=== PATIENT | male | born 1975 | race Caucasian/White ===

== ENCOUNTER 2018-09-10 12:46 | Emergency (ER) | payer MEDICARE ==
[2018-09-10 13:14] LABS: BASOPHIL % 0.1 % (0.0-0.4); Basophil (Absolute #) 0.03 (0-0.4); Eosinophil (Absolute #) 0.01 (0-0.5); Granulocyte Absolute (ANC) 18.23 (1.4-6.9); Granulocytes % 85.6 % (36.0-66.0); Hematocrit 40.8 % (42-50); Hemoglobin 14.2 gm/dl (12.5-18.0); Lymphocytes % 8.4 % (24.0-44.0); Mean Cell Volume 98.3 fl (78-100); Mean Corpuscular Hemoglobin 34.2 pg (26-32); Mean Corpuscular Hgb Concent. 34.8 g/dl (32-36); Mean Platelet Volume 11.2 fl (6-9.5); Monocyte (Absolute #) 1.25 (0.0-1.3); Monocytes % 5.9 % (0.0-12.0); Platelet Count 187 K/mm3 (150-450); Red Blood Count 4.15 M/mm3 (4.1-5.6); Red Cell Distribution Width 11.9 % (11.5-14.0); White Blood Count 21.3 K/mm3 (4.0-10.5)
[2018-09-10 13:33] LABS: ALBUMIN 4.8 g/dL (3.5-5.0); ALKALINE PHOSPHATASE 80 U/L (38-126); ANION GAP 14.9 MEQ/L (5-15); BLOOD UREA NITROGEN 12 mg/dL (9-20); CHLORIDE 101 mmol/L (98-107); Calcium 9.8 mg/dL (8.4-10.2); Carbon Dioxide 27 mmol/L (22-30); Creatinine 1 0.84 mg/dL (0.66-1.25); Glucose 118 mg/dL (74-106); NT PRO BNP 108 pg/mL (0-450); Potassium 4.3 mmol/L (3.5-5.1); SGOT/AST 21 U/L (17-59); SGPT/ALT 27 U/L (0-50); SODIUM 139 mmol/L (137-145); Total Protein 7.6 g/dL (6.3-8.2)
--- NOTE | 2018-09-10 13:35 | XRAY ---
Indication: Chest pain. Comparison: None PA/lateral chest is clear with incidental left hemidiaphragm elevation and overlying monitoring leads. Heart and mediastinal structures within normal limits with tiny cardiac stent graft. Bony thorax intact. Impression: Nonacute chest.
[2018-09-10] MEDS ORDERED: TORAdol 30 mg Injection IV ONE (14:28)
[2018-09-10] MEDS ORDERED: TORAdol 30 mg Injection ONE (14:30)
[2018-09-10 15:53] VITALS: O2SAT 91
[2018-09-10 17:33] LABS: Appearance CLEAR (CLEAR); Bilirubin NEGATIVE (NEGATIVE); Blood NEGATIVE Ery/ul (0-5); Glucose >=500 mg/dL (NEGATIVE); Ketones NEGATIVE (NEGATIVE); Leukocyte Esterase NEGATIVE (NEGATIVE); Mucus SLIGHT /HPF (NEGATIVE); Nitrite NEGATIVE (NEGATIVE); Protein,Urine Dip NEGATIVE (Negative); Specific Gravity 1.012 (1.005-1.025); Urobilinogen NEGATIVE mg/dL (0-1)
--- NOTE | 2018-09-10 18:07 | ERPHSYRPT ---
- History of Present Illness Historian: patient Exam Limitations: no limitations Patient Subjective Stated Complaint: ill for a week with sob,chest pain, cough nonproductive, no fever Triage Nursing Assessment: pt alert, resp easy ,skin w/d/p, chest clear, pt states pain is off and on Physician History: Pt is a 43 y/o male that presented to the ER, complaining of chest pain. Pt states "my told me that I sound like I am snoring". Pt denies F/C/S. No N /V/D. No abdominal pain. Timing/Duration: today Activities at Onset: none Quality: aching Location: substernal Chest Pain Radiation: no radiation Severity of Pain-Max: mild Severity of Pain-Current: mild Modifying Factors: Improves With: nothing Associated Symptoms: denies symptoms Nitro Today/Relief: no nitro taken today Aspirin Treatment Today: no aspirin today Allergies/Adverse Reactions: Penicillins Allergy (Verified 09/10/18 12:47) Hx Influenza Vaccination/Date Given: No Hx Pneumococcal Vaccination/Date Given: No Immunizations Up to Date: Yes - Review of Systems Constitutional: No Fever, No Chills Respiratory: Wheezing, No Cough, No Dyspnea Cardiac: Chest Pain Abdominal/Gastrointestinal: No Abdominal Pain, No Nausea, No Vomiting, No Diarrhea Genitourinary Symptoms: No Dysuria Musculoskeletal: No Back Pain, No Neck Pain Neurological: No Dizziness, No Focal Weakness, No Sensory Changes - Past Medical History Pertinent Past Medical History: No Neurological History: Stroke Cardiac History: Coronary Artery Disease - Past Surgical History Past Surgical History: Yes Cardiac: Cardiac Stent Gastrointestinal: Cholecystectomy Musculoskeletal: Orthopedic Surgery Other Surgical History: knee,wrist - Social History Smoking Status: Current every day smoker Drug Use: none Patient Lives Alone: No - Nursing Vital Signs Nursing Vital Signs: Initial Vital Signs Pulse Rate 72 09/10/18 12:47 Respiratory Rate 20 09/10/18 12:47 Blood Pressure 126/84 09/10/18 12:47 O2 Sat by Pulse Oximetry 97 09/10/18 12:47 Pain Scale Pain Intensity 9 - Physical Exam General Appearance: moderate distress Eye Exam: PERRL/EOMI, eyes nml inspection Ears, Nose, Throat Exam: normal ENT inspection, moist mucous membranes Neck Exam: normal inspection, non-tender, supple, full range of motion Respiratory Exam: normal breath sounds, lungs clear, No respiratory distress Cardiovascular Exam: regular rate/rhythm, normal heart sounds Gastrointestinal/Abdomen Exam: soft, No tenderness, No mass Extremity Exam: normal inspection, normal range of motion Neurologic Exam: alert, oriented x 3, cooperative, normal mood/affect, sensation nml, No motor deficits SpO2: 91 - Course Nursing assessment & vital signs reviewed: Yes EKG Interpreted by Me: RATE (73bpm), Sinus Rhythm, NORMAL ST-T - Radiology Exams Chest X-ray Interpretation: Negative Ordered Tests: Active Orders 24 hr Category Date Time Status Windshield Installer STAT Care 09/10/18 12:54 Active EKG-ER Only STAT Care 09/10/18 12:54 Active IV Insertion STAT Care 09/10/18 12:54 Active Oxygen-ED Only Nasal Cannula 2 lpm Care 09/10/18 12:54 Active CHEST 2 VIEWS (PA AND LAT) Stat Exams 09/10/18 13:21 Completed CBC W DIFF Stat Lab 09/10/18 13:13 Completed CMP Stat Lab 09/10/18 13:13 Completed D-DIMER QUANTITATION Stat Lab 09/10/18 13:13 Completed NT PRO BNP Stat Lab 09/10/18 13:13 Completed TROPONIN Q3H Lab 09/10/18 13:13 Completed TROPONIN Q3H Lab 09/10/18 16:10 Completed TROPONIN Q3H Lab 09/10/18 19:00 Ordered TROPONIN Q3H Lab 09/10/18 22:00 Ordered TROPONIN Q3H Lab 09/11/18 01:00 Ordered UA W/RFX UR CULTURE Stat Lab 09/10/18 17:10 Completed Medication Summary Discontinued Medications Generic Name Dose Route Start Last Admin Trade Name Freq PRN Reason Stop Dose Admin Ketorolac Tromethamine 30 mg 09/10/18 14:28 09/10/18 14:31 Toradol 30 Mg Injection IV 09/10/18 14:29 30 mg STAT ONE Administration Ketorolac Tromethamine Confirm 09/10/18 14:30 Toradol 30 Mg Injection Administered 09/10/18 14:31 Dose 30 mg .ROUTE .STK-MED ONE Lab/Rad Data: Laboratory Result Diagrams 09/10/18 13:13 09/10/18 13:13 Laboratory Results 09/10/18 09/10/18 09/10/18 Range/Units 17:10 16:10 13:13 WBC (4.0-10.5) K/mm3 RBC (4.1-5.6) M/mm3 Hgb (12.5-18.0) gm/dl Hct (42-50) % MCV (78-100) fl MCH (26-32) pg MCHC (32-36) g/dl RDW (11.5-14.0) % Plt Count (150-450) K/mm3 MPV (6-9.5) fl Gran % (36.0-66.0) % Eos # (Auto) (0-0.5) Absolute Lymphs (auto) (1.0-4.6) Absolute Monos (auto) (0.0-1.3) Lymphocytes % (24.0-44.0) % Monocytes % (0.0-12.0) % Eosinophils % (0.00-5.0) % Basophils % (0.0-0.4) % Absolute Granulocytes (1.4-6.9) Basophils # (0-0.4) D-Dimer (215-500) ng/mL Sodium (137-145) mmol/L Potassium (3.5-5.1) mmol/L Chloride (98-107) mmol/L Carbon Dioxide (22-30) mmol/L Anion Gap (5-15) MEQ/L BUN (9-20) mg/dL Creatinine (0.66-1.25) mg/dL Estimated GFR ML/MIN Glucose (74-106) mg/dL Calcium (8.4-10.2) mg/dL Total Bilirubin (0.2-1.3) mg/dL AST (17-59) U/L ALT (0-50) U/L Alkaline Phosphatase (38-126) U/L Troponin I < 0.012 < 0.012 (0.000-0.034) ng/mL NT-Pro-B Natriuret Pep (0-450) pg/mL Serum Total Protein (6.3-8.2) g/dL Albumin (3.5-5.0) g/dL Urine Color YELLOW (YELLOW) Urine Appearance CLEAR (CLEAR) Urine pH 6.0 (5-6) Ur Specific Sibley 1.012 (1.005-1.025) Urine Protein NEGATIVE (Negative) Urine Ketones NEGATIVE (NEGATIVE) Urine Blood NEGATIVE (0-5) Mathew/ul Urine Nitrite NEGATIVE (NEGATIVE) Urine Bilirubin NEGATIVE (NEGATIVE) Urine Urobilinogen NEGATIVE (0-1) mg/dL Ur Leukocyte Esterase NEGATIVE (NEGATIVE) Urine WBC (Auto) NONE (0-5) /HPF Urine RBC (Auto) NONE (0-2) /HPF U Epithel Cells (Auto) NONE (FEW) /HPF Urine Mucus (Auto) SLIGHT (NEGATIVE) /HPF Urine Culture Reflexed NO (NO) Urine Glucose >=500 (NEGATIVE) mg/dL 09/10/18 09/10/18 09/10/18 Range/Units 13:13 13:13 13:13 WBC 21.3 H (4.0-10.5) K/mm3 RBC 4.15 (4.1-5.6) M/mm3 Hgb 14.2 (12.5-18.0) gm/dl Hct 40.8 L (42-50) % MCV 98.3 (78-100) fl MCH 34.2 H (26-32) pg MCHC 34.8 (32-36) g/dl RDW 11.9 (11.5-14.0) % Plt Count 187 (150-450) K/mm3 MPV 11.2 H (6-9.5) fl Gran % 85.6 H (36.0-66.0) % Eos # (Auto) 0.01 (0-0.5) Absolute Lymphs (auto) 1.80 (1.0-4.6) Absolute Monos (auto) 1.25 (0.0-1.3) Lymphocytes % 8.4 L (24.0-44.0) % Monocytes % 5.9 (0.0-12.0) % Eosinophils % 0.0 (0.00-5.0) % Basophils % 0.1 (0.0-0.4) % Absolute Granulocytes 18.23 H (1.4-6.9) Basophils # 0.03 (0-0.4) D-Dimer < 215 L (215-500) ng/mL Sodium 139 (137-145) mmol/L Potassium 4.3 (3.5-5.1) mmol/L Chloride 101 (98-107) mmol/L Carbon Dioxide 27 (22-30) mmol/L Anion Gap 14.9 (5-15) MEQ/L BUN 12 (9-20) mg/dL Creatinine 0.84 (0.66-1.25) mg/dL Estimated GFR > 60.0 ML/MIN Glucose 118 H (74-106) mg/dL Calcium 9.8 (8.4-10.2) mg/dL Total Bilirubin 1.10 (0.2-1.3) mg/dL AST 21 (17-59) U/L ALT 27 (0-50) U/L Alkaline Phosphatase 80 (38-126) U/L Troponin I (0.000-0.034) ng/mL NT-Pro-B Natriuret Pep 108 (0-450) pg/mL Serum Total Protein 7.6 (6.3-8.2) g/dL Albumin 4.8 (3.5-5.0) g/dL Urine Color (YELLOW) Urine Appearance (CLEAR) Urine pH (5-6) Ur Specific Sibley (1.005-1.025) Urine Protein (Negative) Urine Ketones (NEGATIVE) Urine Blood (0-5) Mathew/ul Urine Nitrite (NEGATIVE) Urine Bilirubin (NEGATIVE) Urine Urobilinogen (0-1) mg/dL Ur Leukocyte Esterase (NEGATIVE) Urine WBC (Auto) (0-5) /HPF Urine RBC (Auto) (0-2) /HPF U Epithel Cells (Auto) (FEW) /HPF Urine Mucus (Auto) (NEGATIVE) /HPF Urine Culture Reflexed (NO) Urine Glucose (NEGATIVE) mg/dL - Progress Progress: unchanged Air Movement: fair Progress Note: 09/10/18 18:08 Pt is a 43 y/o male that presented to ED with chest pain. His troponins were neg x2. EKG is normal. D Dimer was normal and CXR is normal as well. UA is negative. Pt has leukocytosis, and should f/u with his PCP and trend. Blood Culture(s) Obtained: No Antibiotics given: No Will see patient in: office Counseled pt/family regarding: need for follow-up - Departure Time of Disposition: 18:09 Departure Disposition: Home Clinical Impression: Chest pain Condition: Stable Critical Care Time: No Referrals: JOSESITO CARLSON Jr. [Primary Care Provider] - Additional Instructions: F/U with PCP, and repeat CBC for WBCs trending.
[2018-09-10 18:34] VITALS: BP 120/70; PULSE 64
== END 2018-09-10 18:25 | disposition home or self-care (01) ==
LOC: ED 12:46
DX: R07.89 Other chest pain (principal); Z98.61 Coronary angioplasty status
CPT/HCPCS: 36000; 36415; 71046; 80053; 81001; 83880; 84484; 85025; 85379; 93005; 93041; 96374; 99284; J1885

== ENCOUNTER 2024-02-12 05:49 | Emergency (ER) | payer BC, MEDICARE ==
[2024-02-12 06:11] VITALS: TEMP 97
[2024-02-12 06:38] VITALS: RESP 17
[2024-02-12] MEDS ORDERED: MOTRIN 600 MG ONE (07:45)
[2024-02-12] MEDS: MOTRIN 600 MG PO ONE (07:46)
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
[2024-02-12 08:33] VITALS: PULSE 44
[2024-02-12 08:40] VITALS: O2SAT 99
--- NOTE | 2024-02-12 08:41 | XRAY ---
Indication: Pain following fall. Comparison: None 2 view right forearm demonstrates normal bones, articulation, and soft tissues.
--- NOTE | 2024-02-12 08:41 | XRAY ---
Indication: Pain following fall. Comparison: None 2 the right humerus demonstrates normal bones, articulation, and soft tissues. A few incidental tiny right lung calcified granulomas.
--- NOTE | 2024-02-12 08:41 | XRAY ---
Indication: Pain following fall. Comparison: None 3 view right shoulder demonstrates normal bones, articulation, and soft tissues. A few incidental tiny right lung calcified granulomas.
--- NOTE | 2024-02-12 08:42 | XRAY ---
Indication: Pain following fall. Comparison: None 3 view right wrist demonstrates normal bones, articulation, and soft tissues.
--- NOTE | 2024-02-12 08:42 | XRAY ---
Indication: Pain following fall. Comparison: None 3 view right elbow demonstrates normal bones, articulation, and soft tissues.
--- NOTE | 2024-02-12 08:43 | XRAY ---
Indication: Pain following fall. Comparison: None 3 view right hand demonstrates normal bones, articulation, and soft tissues.
[2024-02-12 08:50] VITALS: BP 141/76
== END 2024-02-12 08:55 | disposition home or self-care (01) ==
LOC: ED 05:49
DX: M79.601 Pain in right arm (principal); W18.09XA Striking against other object with subsequent fall, initial encounter; Y92.833 Campsite as the place of occurrence of the external cause; Z72.0 Tobacco use
CPT/HCPCS: 73030; 73060; 73080; 73090; 73110; 73130; 99283; A9270-GY